=== PATIENT | female | born 1980 | race Caucasian/White ===

== ENCOUNTER 2020-10-08 20:16 | Emergency (ER) | payer MEDICAID ==
[~2020-10-08] VITALS: Ht 165.1 cm; Wt 88.6 kg
[2020-10-08 21:00] VITALS: BP 156/91
[2020-10-08] MEDS ORDERED: ONDANSETRON HCL 4 MG TABLET PO ONE (21:00)
[2020-10-08] MEDS ORDERED: ACETAMINOPHEN 500 MG TABLET PO ONE (21:00)
[2020-10-09] MEDS ORDERED: KETOROLAC TROMETHAMINE 30 MG/ML VIAL IM ONE (00:45)
[2020-10-09] MEDS ORDERED: HYDROCODONE/ACETAMINOPHEN 5-325 MG TABLET PO ONE (01:00)
== END 2020-10-09 01:05 | disposition home or self-care (01) ==
LOC: EMS 20:16
DX: S06.0X9A Concussion with loss of consciousness of unspecified duration, initial encounter (principal); W21.03XA Struck by baseball, initial encounter; Y93.64 Activity, baseball; Y92.89 Other specified places as the place of occurrence of the external cause; Y99.8 Other external cause status
CPT/HCPCS: 70450; 99284; J1885; Q0162

== ENCOUNTER 2024-01-28 03:00 | Emergency (ER) | payer MEDICAID ==
[~2024-01-28] VITALS: Ht 165.1 cm; Wt 86.4 kg
[2024-01-28 04:35] LABS: COVID AG,FIA SOURCE NASAL SWAB
[2024-01-28] MEDS: KETOROLAC TROMETHAMINE 30 MG/ML VIAL IM ONE (05:24)
[2024-01-28] MEDS: AMOX TR/POT CLAV 875 MG/125 MG TABLET PO ONE (05:24)
[2024-01-28] MEDS: DEXAMETHASONE 4 MG TABLET PO ONE (05:25)
[2024-01-28 05:37] LABS: BASOPHILS % (AUTO) 0.4 % (0.0-2.0); EOSINOPHILS % (AUTO) 1.5 % (1.0-6.0); HEMATOCRIT 37.6 % (36-46); HEMOGLOBIN 12.7 g/dL (12.0-16.0); LYMPHOCYTES # (AUTO) 1.8 K/uL (1.0-4.8); LYMPHOCYTES % (AUTO) 16.6 % (22.0-44.0); MEAN CORPUSCULAR HEMOGLOBIN 29.2 pg (26.0-34.0); MEAN CORPUSCULAR HGB CONC 33.7 G/dL (31.0-37.0); MEAN CORPUSCULAR VOLUME 87 fL (80-100); MONOCYTES # (AUTO) 1.1 K/uL (0.1-1.0); MONOCYTES % (AUTO) 10.5 % (2.0-9.0); NEUTROPHILS # (AUTO) 7.7 K/uL (1.8-7.7); PLATELET COUNT (AUTO) 381 K/uL (150-450); RED BLOOD CELL COUNT(AUTO) 4.33 MIL/uL (4.00-5.20); RED CELL DISTRIBUTION WIDTH 13.8 % (11.5-14.5); WHITE BLOOD COUNT (AUTO) 10.9 K/uL (4.5-11.0)
[2024-01-28 05:47] LABS: SARS-COV2 (COVID) ANTIGEN,FIA Negative (Negative)
[2024-01-28 05:53] LABS: INFLUENZA TYPE A NEGATIVE FOR TYPE A (NEGATIVE); INFLUENZA TYPE B NEGATIVE FOR TYPE B (NEGATIVE)
[2024-01-28 05:58] LABS: TROPONIN I-HIGH SENSITIVITY 10 ng/L (<51)
[2024-01-28] MEDS ORDERED: AMOX-457 PO (06:06)
[2024-01-28 06:07] LABS: ANION GAP 10 mmol/L (8-16); CALCIUM, TOTAL 8.5 mg/dL (8.8-10.5); CARBON DIOXIDE 24 mmol/L (22-29); CHLORIDE 102 mmol/L (98-107); CREATININE 0.72 mg/dL (0.60-1.30); GLOMERULAR FILTR. RATE CALC > 60 mL/min (>60); GLUCOSE,RANDOM 106 mg/dL (70-110); POTASSIUM 3.5 mmol/L (3.5-5.1); SODIUM SERUM 136 mmol/L (136-145); UREA NITROGEN, BLOOD 9 mg/dL (7-18)
[2024-01-28] MEDS ORDERED: NICO-803 TD (06:13)
[2024-01-28 06:39] VITALS: BP 135/96; PULSE 97; RESP 18; TEMP 97.3; O2SAT 98
== END 2024-01-28 06:45 | disposition home or self-care (01) ==
LOC: EMS 03:02
DX: J36 Peritonsillar abscess (principal); R06.02 Shortness of breath; F17.290 Nicotine dependence, other tobacco product, uncomplicated; Z20.822 Contact with and (suspected) exposure to COVID-19
CPT/HCPCS: 99285; 71045; 87426; 80048; 84484; 85025; 87430; 87804; 36415; 93005; 96372; J8540; J1885